=== PATIENT | female | born 1955 | race Caucasian/White ===

== ENCOUNTER 2017-04-26 15:39 | Outpatient (CLI) | payer BC | END 2017-04-26 15:40 | disposition home or self-care (01) | LOC: BICMRI 15:39 | PROVIDERS: ATTEND Family Medicine | DX: M54.5 Low back pain (principal); M47.896 Other spondylosis, lumbar region | CPT/HCPCS: 72148 ==

== ENCOUNTER 2017-05-21 12:05 | Outpatient (CLI) | payer BC | END 2017-05-21 12:06 | disposition home or self-care (01) | LOC: BICMAMMO 12:05 | PROVIDERS: ATTEND Family Medicine | DX: Z12.31 Encounter for screening mammogram for malignant neoplasm of breast (principal); R92.1 Mammographic calcification found on diagnostic imaging of breast; M43.16 Spondylolisthesis, lumbar region; M43.17 Spondylolisthesis, lumbosacral region; M46.97 Unspecified inflammatory spondylopathy, lumbosacral region; Z80.3 Family history of malignant neoplasm of breast | CPT/HCPCS: 72110; 77063; 77067 ==

== ENCOUNTER 2018-08-28 11:01 | Outpatient (CLI) | payer BC ==
--- NOTE | 2018-08-28 13:32 | MMO ---
Bilateral MAMMO Bilat Screen [facility]. CLINICAL HISTORY: Patient is 62 years old and is seen for screening. The patient has the following family history of breast cancer: mother, at age 65 and maternal aunt. The patient has a history of melanoma in 2013. VIEWS: The views performed were: bilateral craniocaudal with tomosynthesis and bilateral mediolateral oblique with tomosynthesis. FILMS COMPARED: The present examination has been compared to prior imaging studies performed at [facility] on 09/25/2012, 02/16/2014, 08/17/2015 and 05/21/2017. MAMMOGRAM FINDINGS: The breasts are heterogeneously dense, which could obscure a lesion on mammography. There are no suspicious masses, calcifications or areas of architectural distortion. There are benign appearing calcifications in both breasts. There are no suspicious masses, suspicious calcifications, or new areas of architectural distortion. IMPRESSION: THERE IS NO MAMMOGRAPHIC EVIDENCE OF MALIGNANCY. A ROUTINE FOLLOW-UP MAMMOGRAM IN 1 YEAR IS RECOMMENDED. THE RESULTS OF THIS EXAM WERE SENT TO THE PATIENT. ACR BI-RADS Category 2 - Benign finding MAMMOGRAPHY NOTE: 1. A negative mammogram report should not delay a biopsy if a dominant of clinically suspicious mass is present. 2. Approximately 10% to 15% of breast cancers are not detected by mammography. 3. Adenosis and dense breasts may obscure an underlying neoplasm. Reported by: DYAN HAYNES MD Electonically Signed: [id number]
== END 2018-08-28 11:02 | disposition home or self-care (01) ==
LOC: BICMAMMO 11:01
PROVIDERS: ATTEND Obstetrics & Gynecology
DX: Z12.31 Encounter for screening mammogram for malignant neoplasm of breast (principal); Z80.3 Family history of malignant neoplasm of breast; Z85.820 Personal history of malignant melanoma of skin
CPT/HCPCS: 77063; 77067

== ENCOUNTER 2019-10-28 12:41 | Outpatient (CLI) | payer BC ==
--- NOTE | 2019-10-28 14:09 | CT ---
CT CHEST WITH IV CONTRAST: 10/28/19 INDICATIONS: Pleural effusion follow-up. No comparison. FINDINGS: Moderate sized right pleural effusion. The lungs are otherwise clear. There is no infiltrate. Mediast inum is unremarkable. No adenopathy. Thoracic aorta is unremarkable. The pulmonary arteries are opaci fied. There is no evidence of proximal pulmonary embolus. Nonspecific paratracheal lymph nodes are se en which measure up to 1 cm. Images through the upper abdomen show unremarkable liver and spleen as visualized. Osseous structures unremarkable with mild degenerative spine changes. Review of soft tissues show very dense breast parenchyma. There is a 1.1 cm nodule in the posterior l eft breast. Recommend follow-up mammogram and ultrasound evaluation of the left breast. IMPRESSION: 1. Small to moderate sized right pleural effusion. 2. The lungs are otherwise clear and no other acute lung or chest process. 3. Very dense breast parenchyma seen bilaterally. There is a 1.1 cm nodule in the posterior lef t breast. Recommend further evaluation with mammogram and ultrasound. Review of the prior studies ind icate previous mammogram was in August 2018. POS: [facility]
[2019-10-28] MEDS ORDERED: Iopamidol 370 76% 100 ML VIAL ONE (16:14)
== END 2019-10-28 12:42 | disposition home or self-care (01) ==
LOC: BICCT 12:41
PROVIDERS: ATTEND Family Medicine
DX: J90 Pleural effusion, not elsewhere classified (principal); N63.20 Unspecified lump in the left breast, unspecified quadrant; N64.89 Other specified disorders of breast
CPT/HCPCS: 71260; Q9967

== ENCOUNTER 2019-11-06 09:11 | Outpatient (CLI) | payer BC ==
--- NOTE | 2019-11-06 10:21 | MMO ---
Bilateral MAMMO Bilat Diag [facility]. CLINICAL HISTORY: Patient is 64 years old and is seen for diagnostic exam. The patient has the following family history of breast cancer: mother, at age 65 and maternal aunt. The patient has a history of melanoma in 2014. VIEWS: The views performed were: bilateral craniocaudal with tomosynthesis; bilateral mediolateral oblique with tomosynthesis; and bilateral mediolateral with tomosynthesis. FILMS COMPARED: The present examination has been compared to prior imaging studies performed at [facility] on 08/17/2015, 05/21/2017, 08/28/2018 and 11/06/2019. This study has been interpreted with the assistance of computer-aided detection. MAMMOGRAM FINDINGS: The breasts are heterogeneously dense, which could obscure a lesion on mammography. 12 mm asymmetric density outer lower left breast posterior depth. Possible corresponding lesion on ultrasound is isoechoic. Recommend steriotactic biopsy. In the right breast, there are no suspicious masses, calcifications or areas of architectural distortion. IMPRESSION: FINDING IN THE LEFT BREAST IS SUSPICIOUS. BIOPSY IS RECOMMENDED. THE RESULTS OF THIS EXAM WERE SENT TO THE PATIENT. ACR BI-RADS Category 4 - Suspicious abnormality - biopsy should be considered MAMMOGRAPHY NOTE: 1. A negative mammogram report should not delay a biopsy if a dominant of clinically suspicious mass is present. 2. Approximately 10% to 15% of breast cancers are not detected by mammography. 3. Adenosis and dense breasts may obscure an underlying neoplasm. Reported by: PHIL MURRIETA MD Electonically Signed: [id number]
--- NOTE | 2019-11-06 11:45 | ULT ---
ULTRASOUND LEFT BREAST: Date: 11/06/2019 INDICATION: Ultrasound of left breast performed to assess an asymmetric density seen on mammography. FINDINGS: At the 5 o'clock position of the left breast, there is an isoechoic area that is somewhat asymmetric and probably corresponds. Because of the isoechoic nature of this apparent lesion making it somewhat difficult to image on ultrasound, a stereotactic biopsy of this asymmetric density is recommended ove r ultrasound-guided biopsy. Findings and recommendations were discussed with the patient. Dr. Fernandez will be notified. IMPRESSION: BI-RADS Category 4 - Suspicious lesion. Stereotactic-guided biopsy is recommended. POS: OFF
== END 2019-11-06 09:12 | disposition home or self-care (01) ==
LOC: BICMAMMO 09:11
PROVIDERS: ATTEND Family Medicine
DX: N63.20 Unspecified lump in the left breast, unspecified quadrant (principal)
CPT/HCPCS: 77066; G0279

== ENCOUNTER 2019-11-09 09:22 | Outpatient (CLI) | payer BC, OTHER ==
[2019-11-10 13:27] LABS: SARS-CoV-2 MS2 Positive; SARS-CoV-2 N Gene Negative; SARS-CoV-2 S Gene Negative; SARS-CoV-2 by NAA Not Detected (NotDetected); SARS-CoV-2 orf1ab Negative
== END 2019-11-09 09:23 | disposition home or self-care (01) ==
LOC: LABBT 09:22
PROVIDERS: ATTEND Internal Medicine Pulmonary Disease
DX: Z20.828 Contact with and (suspected) exposure to other viral communicable diseases (principal)
CPT/HCPCS: 87635; U0003

== ENCOUNTER 2019-11-11 11:37 | Day surgery (SDC) | payer BC ==
--- NOTE | 2019-11-11 12:31 | RAD ---
PORTABLE CHEST 1 VIEW: DATE: 11/11/2019. TIME: 12:26 PM. HISTORY: Pleural effusion, thoracentesis. FINDINGS: There is interval resolution of the right pleural effusion since 10/12/2019. The heart size is stable . No lobar consolidation, pneumothoraces, or pleural effusions are seen. IMPRESSION: No acute process. POS: AH
--- NOTE | 2019-11-11 13:28 | HP ---
HISTORY OF PRESENT ILLNESS: The patient was scheduled for a right-sided thoracentesis. In August of this year, she was in [place] where she had acute abdomen and perforated appendix, spent 5 days in the hospital. They are apparently, CT abdomen was done postop, she was having persistent pain, which showed some atelectatic changes and small pleural effusion. She then returned to [facility], saw primary care physician on 10/12/2019, where an x-ray showed a moderate right-sided pleural effusion. She then was given some medication by primary care physician and an inhaler. Apparently, a cough got better. CT chest was done, which then showed a large pleural effusion. She had some additional lab done, which white count was 6000, H and H were stable. Renal function was normal. She was referred here for ongoing treatment. The patient is a nonsmoker who has had intubated cough for a long time, probably secondary to postnasal drip. Today, she says she is feeling better since August, but still slightly short of breath. PAST MEDICAL HISTORY: Hypertension, cough, hypothyroidism, and mild hypertension. PREVIOUS SURGERIES: Gallbladder, recent laparotomy for perforated appendix, hysterectomy, ovaries, cervix. MEDICATIONS: 1. Synthroid 50. 2. . 3. Zolpidem 5. 4. MiraLAX. 5. Flonase. 6. COQ10 300. 7. Vitamins. ALLERGIES: AMOXICILLIN, CIPRO, AND ALL STATINS. SOCIAL HISTORY: Alcohol, none. Tobacco, none. REVIEW OF SYSTEMS: Otherwise 10-point negative. PHYSICAL EXAMINATION: GENERAL: She is in no acute distress. VITAL SIGNS: Respiratory rate 18, pulse 80, sats 90% on room air, and blood pressure 120/80. CHEST: Decreased breath sounds, right lower 1/3; left, unremarkable. CARDIAC: Normal S1, S2. No gallops. ABDOMEN: Soft. ASSESSMENT: 1. Moderate pleural effusion, probably secondary to previous perforated appendix. 2. Nonsmoker breast nodule, further workup being done in the near future. 3. Chronic cough. She will undergo outpatient thoracentesis. Further recommendation after above. Job ID: [id number]
--- NOTE | 2019-11-12 06:46 | OP ---
DATE OF PROCEDURE: 11/11/2019 PROCEDURE PERFORMED: Thoracentesis. INDICATION: Pleural effusion seen on the chest x-ray and CT of the chest. DESCRIPTION OF PROCEDURE: After informed consent, the patient was sitting upright. The right posterior hemithorax was cleaned with chlorhexidine and 1% lidocaine initially infiltrated in the right ninth intercostal space in the midscapular line. To my surprise, there was no fluid obtained. The needle that was used was inch and a half 26-gauge. Thereafter, the tenth intercostal space was infiltrated once again to the pleural space. No fluid was removed. Third attempt at the ninth intercostal space in the posterior axillary line was done without much fluid to my surprise. A chest x-ray was taken as the procedure was terminated. No significant fluid was seen on the x-ray. Fluid surprisingly has resolved. The patient otherwise tolerated the procedure well. X-ray taken shows no pneumothorax. Brief discharge note; the patient tolerated the procedure well. No significant effusion was drained. X-ray, no effusion was seen at this time. The previously noted pleural effusion has probably absorbed itself. We will follow up the patient in the office at a later time with another chest x-ray. Job ID: [id number]
== END 2019-11-11 12:33 | disposition home or self-care (01) ==
LOC: SDC 11:37
PROVIDERS: ATTEND Internal Medicine Pulmonary Disease
PROC: 0BJQ3ZZ Inspection of Pleura, Percutaneous Approach (ICD-10-PCS; principal; 2019-11-11)
PROC: BW24ZZZ Computerized Tomography (CT Scan) of Chest and Abdomen (ICD-10-PCS; principal; 2019-11-11)
DX: J90 Pleural effusion, not elsewhere classified (principal); N63.0 Unspecified lump in unspecified breast; R05 Cough; I10 Essential (primary) hypertension; E03.9 Hypothyroidism, unspecified; Z88.0 Allergy status to penicillin; Z88.1 Allergy status to other antibiotic agents; Z88.8 Allergy status to other drugs, medicaments and biological substances; Z79.899 Other long term (current) drug therapy
CPT/HCPCS: 32554; 71045; J1642

== ENCOUNTER 2019-11-23 13:14 | Outpatient (CLI) | payer BC ==
--- NOTE | 2019-11-23 13:46 | RAD ---
XR Chest Pa Lat STANDARD HISTORY: Dyspnea COMPARISON: 11/11/2019 FINDINGS: The heart size is stable. The aorta is tortuous. The lungs are well expanded without focal areas of consolidation, pneumothorax or pleural effusions. IMPRESSION: No radiographic evidence of acute cardiopulmonary process.
== END 2019-11-23 13:15 | disposition home or self-care (01) ==
LOC: BICRAD 13:14
PROVIDERS: ATTEND Internal Medicine Pulmonary Disease
DX: R06.00 Dyspnea, unspecified (principal)
CPT/HCPCS: 71046

== ENCOUNTER 2019-12-04 06:46 | Outpatient (CLI) | payer BC, OTHER ==
[2019-12-04 11:09] LABS: #Eosinphils 0.1 thou/uL (0.0-0.7); #Lymphocytes 1.5 thou/uL (1.20-3.40); #Monocytes 0.5 thou/uL (0.11-0.59); #Neutrophils 2.7 thou/uL (1.40-6.50); %Basophils 0.8 % (0.0-1.0); %Eosinophils 1.6 % (0.0-10.0); %Lymphocytes 30.4 % (21.0-51.0); %Neutrophils 56.1 % (42.0-75.0); Hemoglobin 10.7 g/dL (12.0-16.0); Mean Corpuscular HGB CONC 32.6 g/dL (32.0-36.0); Mean Corpuscular Hemoglobin 29.1 pg (27.0-31.0); Mean Corpuscular Volume 89.2 fL (78.0-98.0); Mean Platelet Volume 8.6 fL (7.4-10.4); Platelet Count 262 thou/uL (130-400); RBC Distribution Width 13.4 % (11.5-14.5); Red Blood Cell (RBC) Count 3.68 mill/uL (4.20-5.40); White Blood Cell (WBC) Count 4.8 thou/uL (4.8-10.8)
[2019-12-04 13:59] LABS: Anion Gap 13 mmol/L (10-20); BUN (Urea Nitrogen) 26 mg/dL (9.8-20.1); Calc. Creatinine Clearance 0 mL/min (70-130); Calcium 9.3 mg/dL (7.8-10.44); Carbon Dioxide 24 mmol/L (23-31); Chloride 106 mmol/L (98-107); Estimated GFR-MDRD 78; Glucose 96 mg/dL (80-115); Potassium 4.1 mmol/L (3.5-5.1); Sodium 139 mmol/L (136-145)
[2019-12-04 17:21] LABS: SARS-CoV-2 MS2 Positive; SARS-CoV-2 N Gene Negative; SARS-CoV-2 S Gene Negative; SARS-CoV-2 by NAA Not Detected (NotDetected); SARS-CoV-2 orf1ab Negative
== END 2019-12-04 06:47 | disposition home or self-care (01) ==
LOC: LABBT 06:46
PROVIDERS: ATTEND Surgery
DX: Z01.812 Encounter for preprocedural laboratory examination (principal); C50.912 Malignant neoplasm of unspecified site of left female breast; Z20.828 Contact with and (suspected) exposure to other viral communicable diseases
CPT/HCPCS: 80048; 85025; 87635; U0003

== ENCOUNTER 2019-12-09 07:11 | Day surgery (SDC) | payer BC ==
[2019-12-08 09:48] VITALS: BMI 25.1
--- NOTE | 2019-12-09 08:51 | MMO ---
Needle localization left breast mass sonographic guided HISTORY: Mucinous carcinoma. Left breast cancer. FINDINGS: After explaining the procedure and answering all questions, the oval mass and localization clip at the inferior aspect of the left breast was again imaged. Sterile technique, buffered local anesthesia, mammographic guidance, and an anterior approach were us ed to carefully advance a 5 cm [place] needle and wire to the posterior margin of the mass, immediately anterior to the localization clip. Final images show the tip of the needle to be 1.5 cm s uperior to the center of the mass. Final images were marked. Patient tolerated the procedure well and was transferred to nuclear medicin e Department for lymphoscintigraphy procedure. IMPRESSION : Technically successful needle localization left breast mass.
[2019-12-09] MEDS ORDERED: Lidocaine 1% PF 5 ML VIAL ONE (09:19)
[2019-12-09] MEDS ORDERED: PHENYLEPHRINE-NS 100 MCG/ML 10 ML SYRINGE ONE (09:19)
[2019-12-09] MEDS ORDERED: EPHEDRINE 25 MG/5 ML SYRINGE ONE (09:19)
[2019-12-09] MEDS ORDERED: Ondansetron PF 4 MG/2 ML Vial ONE (09:19)
[2019-12-09] MEDS ORDERED: PROPOFOL 200 MG/20 ML VIAL ONE (09:19)
[2019-12-09] MEDS ORDERED: Dexamethasone 20 MG/5 ML VIAL ONE (09:19)
--- NOTE | 2019-12-09 11:18 | NM ---
Exam: Nuclear medicine lymphoscintigraphy HISTORY: Left breast cancer. TECHNIQUE: Patient was administered a total of 0.365 mCi of technetium 99m filtered sulfur colloid degroot bcutaneously. FINDINGS: There is a left axillary sentinel lymph node IMPRESSION: Left axillary sentinel lymph node.
[2019-12-09] MEDS ORDERED: Methylene Blue 50 MG/10 ML AMPUL ONE (12:46)
[2019-12-09] MEDS ORDERED: Bupivacaine/Epinephrine 0.25% 30 ML VIAL ONE (12:46)
[2019-12-09] MEDS ORDERED: Lidocaine 2% PF 5 ML VIAL ONE (12:46)
[2019-12-09] MEDS ORDERED: Fentanyl 100 MCG/2 ML VIAL ONE (12:55)
[2019-12-09] MEDS ORDERED: Ketorolac Tromethamine 30 MG/ML VIAL ONE (14:33)
[2019-12-09] MEDS ORDERED: Acetaminophen 500 MG TAB ONE (15:30)
--- NOTE | 2019-12-09 17:37 | OP ---
DATE OF PROCEDURE: 12/09/2019 PREOPERATIVE DIAGNOSIS: Left breast cancer, clinical stage T1 N0 Mx. POSTOPERATIVE DIAGNOSIS: Left breast cancer, clinical stage T1 N0 Mx. PROCEDURE PERFORMED: 1. Left partial mastectomy after needle localization. 2. Left deep axillary node using sentinel node by sentinel node protocol. ANESTHESIA: General. ESTIMATED BLOOD LOSS: Minimal. COMPLICATIONS: None. SPECIMEN: Left breast mass marked with 2 short superior, 1 long lateral, sent to Path for final diagnosis. Left sentinel node. DESCRIPTION OF PROCEDURE: The patient underwent preop placement of needle localization wire as well as lymphoscintigraphy. She was taken to the operating room where 5 mL of methylene blue was instilled under left nipple and massaged for 10 minutes. Left breast, chest, and axilla were all prepped and draped in a sterile fashion. An incision was made below the hairline of the left axilla. Dissection was taken down through clavipectoral fascia. An area of increased uptake was found and then lymph node was removed with high counts on the back table. Counts dropped to near zero in the axilla. The wound was irrigated and closed using 3-0 Vicryl, 4-0 Monocryl, and Dermabond. The lymph node was sent as sentinel lymph node. Next, an incision was made along the areola of the left breast. Flaps were raised superiorly, inferiorly, posterolaterally and deep to the needle localization wire. The specimen was removed and marked with 2 short superior, 1 long lateral, sent to specimen x-ray, which revealed the clip to be in the specimen, was thus sent to Path for final diagnosis. The wound was irrigated. Local anesthetic was applied. The wound was closed using 3-0 Vicryl, 4-0 Monocryl, and Dermabond. The patient was sent to Recovery in stable condition. All instrument counts, needle counts, lap counts are correct. Job ID: [id number]
--- NOTE | 2019-12-10 07:37 | MMO ---
Surgical specimen mammography HISTORY: Left breast cancer. FINDINGS: Mammographic evaluation of the surgical specimen obtained by Dr. Brady shows the localiza tion clip and oval nodule to overlie the soft tissue. Results were called to Dr. Brady in the OR at the time of the exam.
== END 2019-12-09 16:40 | disposition home or self-care (01) ==
LOC: SDC 07:11
PROVIDERS: ATTEND Surgery
PROC: 0HBU0ZZ Excision of Left Breast, Open Approach (ICD-10-PCS; principal; 2019-12-09)
PROC: 07B60ZX Excision of Left Axillary Lymphatic, Open Approach, Diagnostic (ICD-10-PCS; principal; 2019-12-09)
DX: C50.312 Malignant neoplasm of lower-inner quadrant of left female breast (principal); I10 Essential (primary) hypertension; E03.9 Hypothyroidism, unspecified; K21.9 Gastro-esophageal reflux disease without esophagitis; Z17.0 Estrogen receptor positive status [ER+]; Z79.82 Long term (current) use of aspirin; Z79.899 Other long term (current) drug therapy; Z88.0 Allergy status to penicillin; Z88.1 Allergy status to other antibiotic agents; Z88.8 Allergy status to other drugs, medicaments and biological substances
CPT/HCPCS: 19281; 76098; 78195; 88307; 88342; A9541; J0690; J1100; J1885; J2001; J2405; J2704; J3010; Q9968

== ENCOUNTER 2021-02-22 14:06 | Outpatient (CLI) | payer BC, MEDICARE | END 2021-02-22 14:07 | disposition home or self-care (01) | LOC: BICMAMMO 14:06 | PROVIDERS: ATTEND Nurse Practitioner Acute Care | DX: C50.812 Malignant neoplasm of overlapping sites of left female breast (principal) | CPT/HCPCS: 77066; G0279 ==

== ENCOUNTER 2021-04-10 10:27 | Outpatient (CLI) | payer MEDICARE, BC | END 2021-04-10 10:28 | disposition home or self-care (01) | LOC: BICMAMMO 10:27 | PROVIDERS: ATTEND Internal Medicine Hematology & Oncology | DX: M81.0 Age-related osteoporosis without current pathological fracture (principal) | CPT/HCPCS: 77080 ==

== ENCOUNTER 2022-04-04 10:12 | Outpatient (CLI) | payer MEDICARE, BC | END 2022-04-04 10:13 | disposition home or self-care (01) | LOC: BICMAMMO 10:12 | PROVIDERS: ATTEND Internal Medicine Hematology & Oncology | DX: Z08 Encounter for follow-up examination after completed treatment for malignant neoplasm (principal); Z85.3 Personal history of malignant neoplasm of breast | CPT/HCPCS: 77066; G0279 ==

== ENCOUNTER 2022-04-06 12:22 | Outpatient (CLI) | payer MEDICARE, BC | END 2022-04-06 12:23 | disposition home or self-care (01) | LOC: BICULT 12:22 | PROVIDERS: ATTEND Family Medicine | DX: R22.43 Localized swelling, mass and lump, lower limb, bilateral (principal) ==

== ENCOUNTER 2022-04-12 10:10 | Emergency (ER) | payer MEDICARE, BC ==
[2022-04-12] MEDS ORDERED: Ketorolac Tromethamine 30 MG/ML VIAL ONE (11:41)
[2022-04-12] MEDS ORDERED: Morphine 4 MG/ML VIAL ONE (11:41)
[2022-04-12] MEDS ORDERED: Pantoprazole 40 MG VIAL ONE (12:59)
[2022-04-12] MEDS ORDERED: Ondansetron PF 4 MG/2 ML Vial ONE (12:59)
== END 2022-04-12 14:02 | disposition short-term general hospital (02) ==
LOC: ERS 10:10
DX: S02.32XA Fracture of orbital floor, left side, initial encounter for closed fracture (principal); H05.822 Myopathy of extraocular muscles, left orbit; E78.5 Hyperlipidemia, unspecified; I10 Essential (primary) hypertension; W20.8XXA Other cause of strike by thrown, projected or falling object, initial encounter; Z79.899 Other long term (current) drug therapy
CPT/HCPCS: 70450; 70486; 96374; 96375; C9113; J1885; J2270; J2405

== ENCOUNTER 2022-05-16 14:55 | Outpatient (CLI) | payer MEDICARE, BC | END 2022-05-16 14:56 | disposition home or self-care (01) | LOC: BICMAMMO 14:55 | PROVIDERS: ATTEND Internal Medicine Hematology & Oncology | DX: M81.0 Age-related osteoporosis without current pathological fracture (principal); C50.812 Malignant neoplasm of overlapping sites of left female breast; D50.8 Other iron deficiency anemias; M85.89 Other specified disorders of bone density and structure, multiple sites | CPT/HCPCS: 77080 ==

== ENCOUNTER 2022-08-03 10:23 | Outpatient (CLI) | payer MEDICARE, BC | END 2022-08-03 10:24 | disposition home or self-care (01) | LOC: BICRAD 10:23 | PROVIDERS: ATTEND Specialist | DX: M43.16 Spondylolisthesis, lumbar region (principal); M47.816 Spondylosis without myelopathy or radiculopathy, lumbar region; M46.06 Spinal enthesopathy, lumbar region; M89.38 Hypertrophy of bone, other site | CPT/HCPCS: 72120 ==

== ENCOUNTER 2023-02-19 10:28 | Outpatient (CLI) | payer MEDICARE | END 2023-02-19 10:29 | disposition home or self-care (01) | LOC: BICRAD 10:28 | PROVIDERS: ATTEND Family Medicine | DX: R05.9 Cough, unspecified (principal) | CPT/HCPCS: 71046 ==

== ENCOUNTER 2023-03-15 10:09 | Outpatient (CLI) | payer MEDICARE | END 2023-03-15 10:10 | disposition home or self-care (01) | LOC: SCSMRI 10:09 | PROVIDERS: ATTEND Physician Assistant Medical | DX: R10.11 Right upper quadrant pain (principal); R79.89 Other specified abnormal findings of blood chemistry | CPT/HCPCS: 74183 ==

== ENCOUNTER 2023-04-17 11:58 | Outpatient (CLI) | payer MEDICARE ==
[2023-04-17 13:17] LABS: #Basophils 0.1 10x3/uL (0.0-0.2); #Eosinphils 0.1 10x3/uL (0.0-0.5); #Monocytes 0.6 10x3/uL (0.0-1.1); #Neutrophils 3.9 10x3/uL (1.5-8.4); %Basophils 0.8 % (0.0-2.0); %Eosinophils 1.4 % (0.0-6.0); %Lymphocytes 26.4 % (18.0-47.0); %Monocytes 8.7 % (0.0-10.0); %Neutrophils 62.5 % (40.0-75.0); Hematocrit 37.1 % (34.9-44.5); Hemoglobin 12.3 g/dL (12.0-15.5); Mean Corpuscular HGB CONC 33.2 g/dL (32.0-36.0); Mean Corpuscular Hemoglobin 31.1 pg (27.0-33.0); Mean Corpuscular Volume 93.9 fl (81.6-98.3); Mean Platelet Volume 11.5 fl (7.4-10.4); Platelet Count 176 10x3/uL (150-450); RBC Distribution Width 12.9 % (11.5-14.5); Red Blood Cell (RBC) Count 3.95 10x6/uL (3.90-5.03); White Blood Cell (WBC) Count 6.3 10x3/uL (3.5-10.5)
[2023-04-17 13:34] LABS: Prothrombin Time 10.8 sec (9.5-12.1)
[2023-04-17 13:37] LABS: Anion Gap 13 mmol/L (10-20); BUN (Urea Nitrogen) 20 mg/dL (9.8-20.1); Calc. Creatinine Clearance 0 mL/min (70-130); Carbon Dioxide 24 mmol/L (23-31); Chloride 107 mmol/L (98-107); Estimated GFR 95; Glucose 89 mg/dL (80-115); Potassium 3.8 mmol/L (3.5-5.1); Sodium 140 mmol/L (136-145)
== END 2023-04-17 11:59 | disposition home or self-care (01) ==
LOC: LABBT 11:58
PROVIDERS: ATTEND Orthopaedic Surgery
DX: Z01.812 Encounter for preprocedural laboratory examination (principal); M17.12 Unilateral primary osteoarthritis, left knee
CPT/HCPCS: 80048; 85025; 85610; 87081

== ENCOUNTER 2023-04-19 08:45 | Outpatient (CLI) | payer MEDICARE | END 2023-04-19 08:46 | disposition home or self-care (01) | LOC: BICMAMMO 08:45 | PROVIDERS: ATTEND Internal Medicine Hematology & Oncology | DX: Z08 Encounter for follow-up examination after completed treatment for malignant neoplasm (principal); Z85.3 Personal history of malignant neoplasm of breast | CPT/HCPCS: 77066; G0279 ==

== ENCOUNTER 2023-04-23 07:01 | Inpatient (IN) | payer MEDICARE ==
[2023-04-17 12:28] VITALS: BMI 27.4
[2023-04-23] MEDS ORDERED: Bupivacaine PF 0.5% 30 ML VIAL ONE (07:27)
[2023-04-23] MEDS ORDERED: fentaNYL 50 mcg/mL 1 mL Vial ONE ×8 (07:27→16:21)
[2023-04-23] MEDS ORDERED: Midazolam HCl 2 mg/2 ml Vial ONE (07:27)
[2023-04-23] MEDS ORDERED: Vancomycin 1 GM/200 ML (FROZEN) BAG ONE (07:36)
[2023-04-23] MEDS ORDERED: Sodium Chloride 0.9% 100 ML ONE ×2 (07:36→08:51)
[2023-04-23] MEDS ORDERED: Tranexamic Acid 1,000 MG/10 ML VIAL ONE (07:36)
[2023-04-23] MEDS ORDERED: Bupivacaine 0.25% HCL 30 ML VIAL ONE (08:50)
[2023-04-23] MEDS ORDERED: EPINEPHrine 1 MG/ML VIAL ONE (08:50)
[2023-04-23] MEDS ORDERED: CEFAZOLIN 2 GM VIAL ONE (08:51)
[2023-04-23] MEDS ORDERED: PROPOFOL 20 ML ONE (09:24)
[2023-04-23] MEDS ORDERED: Lidocaine 2% PF 5 ML VIAL ONE (09:24)
[2023-04-23] MEDS ORDERED: Ondansetron PF 4 MG/2 ML Vial IVP PRN ×2 (09:30→11:18)
[2023-04-23] MEDS ORDERED: Zolpidem Tartrate 5 MG TAB PO PRN ×2 (09:30→11:18)
[2023-04-23] MEDS ORDERED: Ropivacaine 0.2% 550 ML 550 ML NERVE BLCK SCH (09:30)
[2023-04-23] MEDS ORDERED: Promethazine HCl 25 MG/ML VIAL IM PRN ×2 (09:30→11:18)
[2023-04-23] MEDS ORDERED: ePHEDrine Sulfate 50 MG/10 ML VIAL ONE (09:36)
[2023-04-23] MEDS ORDERED: Ondansetron PF 4 MG/2 ML Vial ONE (09:47)
[2023-04-23] MEDS ORDERED: Dexamethasone 4 mg/ml Vial ONE (09:47)
[2023-04-23] MEDS ORDERED: Acetaminophen 325 MG TAB PO PRN (11:18)
[2023-04-23] MEDS ORDERED: diphenhydrAMINE 25 MG CAP PO PRN (11:18)
[2023-04-23] MEDS: fentaNYL 50 mcg/mL 1 mL Vial SLOW IVP PRN (15:04)
[2023-04-23] MEDS: Sodium Chloride 0.9% 1,000 ML IV SCH (15:08)
[2023-04-23] MEDS: HYDROcodone/Acetaminophen 10/325 mg Tablet PO PRN (17:46)
[2023-04-23] MEDS: CEFAZOLIN 2 GM in Sodium Chloride 0.9% 100 ML IVPB SCH (17:47)
[2023-04-23] MEDS: Aspirin 81 mg Enteric Coated Tablet PO SCH (20:02)
[2023-04-24] MEDS: HYDROcodone/Acetaminophen 10/325 mg Tablet PO PRN (00:09)
[2023-04-24 05:08] LABS: Hematocrit 30.2 % (36.0-47.0); Hemoglobin 10.1 g/dL (12.0-16.0); Mean Corpuscular HGB CONC 33.4 g/dL (32.0-36.0); Mean Corpuscular Hemoglobin 32.3 pg (27.0-31.0); Mean Corpuscular Volume 96.5 fl (78.0-98.0); Platelet Count 131 10x3/uL (130-400); RBC Distribution Width 13.2 % (11.5-14.5); Red Blood Cell (RBC) Count 3.13 mill/uL (4.20-5.40); White Blood Cell (WBC) Count 9.8 10x3/uL (4.8-10.8)
[2023-04-24] MEDS: traMADol HCl 50 MG TAB PO PRN ×2 (06:01→14:23)
[2023-04-24] MEDS: Multivitamin W/ Minerals 1 TAB PO SCH (09:47)
[2023-04-24] MEDS: Ferrous Gluconate 324 MG TAB PO SCH (09:47)
[2023-04-24] MEDS: Senokot S 8.6-50 MG TAB PO SCH (09:55)
[2023-04-25] MEDS: Levothyroxine Sodium 50 MCG TAB PO SCH (05:52)
[2023-04-25] MEDS: Loratadine 10 MG TAB PO SCH (09:13)
[2023-04-25 11:49] VITALS: BP 119/77; TEMP 99.1
== END 2023-04-25 14:35 | disposition home or self-care (01) | DRG 470 ==
LOC: SDC 07:01 → SURG A 11:45 → OBSVTOIN 04-24 11:15
PROVIDERS: ADMIT Orthopaedic Surgery; ATTEND Orthopaedic Surgery
PROC: 0SRD0J9 Replacement of Left Knee Joint with Synthetic Substitute, Cemented, Open Approach (ICD-10-PCS; principal; 2023-04-23)
PROC: 3E033XZ Introduction of Vasopressor into Peripheral Vein, Percutaneous Approach (ICD-10-PCS; 2023-04-23)
DX: M17.12 Unilateral primary osteoarthritis, left knee (principal); E78.5 Hyperlipidemia, unspecified; Z98.51 Tubal ligation status; E03.9 Hypothyroidism, unspecified; I10 Essential (primary) hypertension; K21.9 Gastro-esophageal reflux disease without esophagitis; Z88.1 Allergy status to other antibiotic agents; Z79.899 Other long term (current) drug therapy
CPT/HCPCS: 36415; 85027; A4306; C1713; C1776; J0171; J0665; J1100; J2001; J2250; J2405; J2704; J2795; J3010; J3370-JW; J3490

== ENCOUNTER 2024-06-11 11:14 | Outpatient (CLI) | payer MEDICARE | END 2024-06-11 11:15 | disposition home or self-care (01) | LOC: BICMAMMO 11:14 | PROVIDERS: ATTEND Internal Medicine Hematology & Oncology | DX: M81.0 Age-related osteoporosis without current pathological fracture (principal); C50.812 Malignant neoplasm of overlapping sites of left female breast; D50.8 Other iron deficiency anemias | CPT/HCPCS: 77066; G0279 ==

== ENCOUNTER 2024-10-29 10:53 | Outpatient (CLI) | payer MEDICARE | END 2024-10-29 10:54 | disposition home or self-care (01) | LOC: BICMAMMO 10:53 | PROVIDERS: ATTEND Internal Medicine Hematology & Oncology | DX: C50.812 Malignant neoplasm of overlapping sites of left female breast (principal); M81.0 Age-related osteoporosis without current pathological fracture; D50.8 Other iron deficiency anemias; M85.88 Other specified disorders of bone density and structure, other site | CPT/HCPCS: 77080 ==